=== PATIENT | female | born 1965 | race American Indian/Alaskan Native ===

== ENCOUNTER 2017-05-15 08:26 | Outpatient (CLI) | payer MEDICARE ==
[2017-05-15 11:00] LABS: Uric Acid 5.3 mg/dL (3.5-7.6)
== END 2017-05-15 08:27 | disposition home or self-care (01) ==
LOC: LABHHL 08:26
PROVIDERS: ATTEND Internal Medicine
DX: E11.9 Type 2 diabetes mellitus without complications (principal); I10 Essential (primary) hypertension; J44.9 Chronic obstructive pulmonary disease, unspecified; K21.9 Gastro-esophageal reflux disease without esophagitis; E78.2 Mixed hyperlipidemia; G89.4 Chronic pain syndrome; M81.0 Age-related osteoporosis without current pathological fracture; R32 Unspecified urinary incontinence; J45.909 Unspecified asthma, uncomplicated; Z79.899 Other long term (current) drug therapy; Z87.891 Personal history of nicotine dependence
CPT/HCPCS: 36415; 80061; 83036; 84550

== ENCOUNTER 2017-10-12 09:43 | Outpatient (CLI) | payer MEDICARE ==
--- NOTE | 2017-10-12 12:01 | Cat Scan Report ---
CT NECK WITH CONTRAST: HISTORY: Acute pharyngitis. TECHNIQUE: Helical CT following IV contrast. Sagittal and coronal reformatted images. FINDINGS: The parotid and submandibular glands are normal. The carotid sheaths are intact. There is no evidence of adenopathy within the neck. The thyroid gland is normal. The glottic structures are normal. The airway is patent. Strap musculature is unremarkable. Hyoid bone and thyroid cartilage are intact. No evidence for abscess. IMPRESSION: Unremarkable CT neck.
== END 2017-10-12 09:44 | disposition home or self-care (01) ==
LOC: CT 09:43
PROVIDERS: ATTEND Nurse Practitioner
DX: J02.9 Acute pharyngitis, unspecified (principal); R59.9 Enlarged lymph nodes, unspecified
CPT/HCPCS: 70491; Q9967

== ENCOUNTER 2019-01-10 12:09 | Emergency (ER) | payer MEDICARE ==
--- NOTE | 2019-01-10 12:19 | Emergency Department Report ---
Chief Complaint: Extremity Problem,Nontraumatic Stated Complaint: RT HIP/DISCHARGE PAIN Time Seen by Provider: 01/10/19 12:15 - HPI History of Present Illness: Pt c/o right hip pain that began a week ago. states the more she ambulates the worse the pain gets denies any injury or fall she states she did exert herself more over the last week Pt is also c/o vaginal discharge a week ago green colored discharge (+) sexually active no urinary sx, fever hx of gonorrhea in teenage years PSHx total hysterectomy MSE complete MSE screening note: Focused history and physical exam performed. Due to findings the following was ordered: UA, right hip xr ED Disposition for MSE Condition: Stable
--- NOTE | 2019-01-10 12:43 | XRay Report ---
RIGHT HIP, 2 views: History: Right rib pain. The bony architecture is intact without evidence of fracture or dislocation. No significant soft tissue abnormality is seen. IMPRESSION: Normal right hip.
[2019-01-10 13:54] LABS: Bilirubin,Urine NEG (Negative); Blood,Urine NEG (Negative); Color,Urine Straw (Yellow); Mucus,Urine FEW /HPF; Protein,Urine <15 mg/dL mg/dL (Negative); Urobilinogen,Urine < 2.0 mg/dL (<2.0); WBC,Urine < 1.0 /HPF (0.0-6.0)
[2019-01-10] MEDS ORDERED: IBUPROFEN PO ONE (13:57)
--- NOTE | 2019-01-10 13:57 | Emergency Department Report ---
ED Dysuria HPI - HPI Chief Complaint: Extremity Problem,Nontraumatic Stated Complaint: RT HIP/DISCHARGE PAIN Time Seen by Provider: 01/10/19 12:15 Duration: 3 Days Severity: Mild Symptoms: Dysuria: Yes, Frequency: No, Suprapubic Pain: No, Flank Pain: No, Fever: No, Hematuria: No, Abdominal Pain: No, Previous UTI's: No Other History: Patient is a 53-year-old -[place]ian female who comes to the ER today with 2 complaints. 1. She is having right hip pain to she is having vaginal discharge for a week. she denies fall. 2. She describes it as white and malodorous. Patient is not concerned for STDs AND SHE she is postmenopausal. PMH. htn. hpld. gerd. neuropathy. arthritis. allergies. asthma ED Review of Systems ROS: Stated complaint: RT HIP/DISCHARGE PAIN Other details as noted in HPI Comment: All other systems reviewed and negative Constitutional: denies: chills Eyes: denies: eye pain ENT: denies: ear pain Respiratory: denies: cough Cardiovascular: denies: palpitations Endocrine: denies: excessive sweating Gastrointestinal: denies: abdominal pain, nausea, vomiting Genitourinary: as per HPI, discharge. denies: urgency, dysuria, frequency, hematuria Musculoskeletal: as per HPI, arthralgia Skin: denies: rash Neurological: denies: headache Psychiatric: denies: anxiety Hematological/Lymphatic: denies: easy bleeding ED Past Medical Hx - Past Medical History Hx Hypertension: Yes Hx Diabetes: Yes Hx GERD: Yes Hx Liver Disease: No Hx Renal Disease: No Hx Arthritis: Yes Hx Seizures: No Hx Asthma: Yes (INHALER PRN) Hx HIV: No Additional medical history: glaucoma - Surgical History Past Surgical History?: Yes Additional Surgical History: hysterectomy,ganglion cyst,spinal stimulator. L4-5 fusion. bone graft. left shoulder rotator cuff surgery. left bicep surgery, right shoulder - Family History Family history: no significant - Social History Smoking Status: Never Smoker Substance Use Type: None - Medications Home Medications: Home Medications Medication Instructions Recorded Confirmed Last Taken Type ALBUTEROL NEB's [Proventil] 2.5 mg IH PRN PRN 04/03/16 10/07/18 03/09/18 History Bimatoprost [Lumigan 0.01%] 1 drop OP QPM 04/03/16 10/07/18 10/06/18 History Esomeprazole Magnesium [NexIUM] 40 mg PO QDAY 04/03/16 09/22/18 10/07/18 04:00 History Ezetimibe [Zetia] 10 mg PO QDAY 04/03/16 09/22/18 10/07/18 04:00 History Gabapentin [Neurontin] 900 mg PO DAILY 04/03/16 09/22/18 10/07/18 04:00 History Lisinopril [Zestril] 20 mg PO QDAY 04/03/16 09/22/18 10/07/18 04:00 History Metoprolol [Lopressor TAB] 50 mg PO DAILY 04/03/16 09/22/18 10/07/18 04:00 History cycloSPORINE [Restasis 0.05%] 2 drop OP BID 04/03/16 10/07/18 10/07/18 04:00 History hydroCHLOROthiazide [HCTZ] 25 mg PO QDAY 04/03/16 10/07/18 10/05/18 History Atorvastatin 40 mg PO DAILY 04/16/16 10/07/18 09/23/18 History Montelukast Sodium 1 tab PO QDAY 10/07/18 10/07/18 10/07/18 04:00 History RX: HYDROcodone/APAP 7.5-325 1 each PO Q6HR PRN #35 tablet 10/07/18 Unknown Rx [[place] 7.5-325 mg TAB] metroNIDAZOLE [Flagyl] 500 mg PO Q12HR #20 tab 01/10/19 Unknown Rx Dysuria Exam - Exam General: Vital signs noted. No distress. Alert and acting appropriately. Exam: Yes Moist Mucous Membranes, No CVA Tenderness, No Abdominal Tenderness, No Rigidity or Guarding Labs: Lab Results 01/10/19 Range/Units 12:54 Urine Bilirubin Neg (Negative) Urine RBC (Auto) 4.0 (0.0-6.0) /HPF U Epithel Cells (Auto) 3.0 (0-13.0) /HPF ED Course Vital Signs 01/10/19 12:16 Temperature 97.5 F L Pulse Rate 68 Respiratory 20 Rate Blood Pressure 178/89 O2 Sat by Pulse 100 Oximetry - Reevaluation(s) Reevaluation #1: 03/04/19 home meds lumigan nexium zetia gabapentin lisinopril metoprolol restasis hctz statin [place] ED Medical Decision Making - Radiology Data Radiology results: report reviewed, image reviewed - Medical Decision Making XRAY NEG FOR FRACTURE Labs 01/10/19 12:54 Urine Color Straw Urine Turbidity Clear Urine pH 5.0 Ur Specific [place] 1.006 Urine Protein <15 mg/dl Urine Glucose (UA) Neg Urine Ketones Neg Urine Blood Neg Urine Nitrite Neg Urine Bilirubin Neg Urine Urobilinogen < 2.0 Ur Leukocyte Esterase Lg Urine WBC (Auto) < 1.0 Urine RBC (Auto) 4.0 U Epithel Cells (Auto) 3.0 Urine Mucus Few Vital Signs 01/10/19 01/10/19 12:16 14:25 Temperature 97.5 F L Pulse Rate 68 70 Respiratory 20 16 Rate Blood Pressure 178/89 Blood Pressure 174/84 [Left] O2 Sat by Pulse 100 100 Oximetry dc home with flagyl for vaginitis instructed to use nsaids for pain in her hip pt is ambulatory and without point tenderness on her hip Critical care attestation.: If time is entered above; I have spent that time in minutes in the direct care of this critically ill patient, excluding procedure time. ED Disposition Clinical Impression: Arthritis, Vaginitis Disposition: DC-01 TO HOME OR SELFCARE Is pt being admited?: No Does the pt Need Aspirin: No Condition: Stable Additional Instructions: FOLLOW UP WITH PCP FOR HIP PAIN MED ORDERED TODAY ONCE YOU FINISH ANTIBIOTIC YOU SHOULD SEE PCP TO BE SURE THE INFECTION IS GONE EAT YOGURT EVERY DAY DIET AND ACTIVITY TOLERATED Prescriptions: metroNIDAZOLE [Flagyl] 500 mg PO Q12HR #20 tab Referrals: ODILIA DONG MD [Primary Care Provider] - 3-5 Days Time of Disposition: 13:57
[2019-01-10 14:27] VITALS: BP 174/84
== END 2019-01-10 14:25 | disposition home or self-care (01) ==
LOC: ED 12:09
DX: N76.0 Acute vaginitis (principal); M19.90 Unspecified osteoarthritis, unspecified site; I10 Essential (primary) hypertension; E11.9 Type 2 diabetes mellitus without complications; K21.9 Gastro-esophageal reflux disease without esophagitis; J45.909 Unspecified asthma, uncomplicated; Z90.710 Acquired absence of both cervix and uterus; Z88.7 Allergy status to serum and vaccine; Z88.8 Allergy status to other drugs, medicaments and biological substances
CPT/HCPCS: 81001; 99284

== ENCOUNTER 2019-03-07 09:46 | Outpatient (CLI) | payer MEDICARE ==
[2019-03-07 11:28] LABS: Chol/HDL Ratio 3.79 %
== END 2019-03-07 09:47 | disposition home or self-care (01) ==
LOC: LAB 09:46
PROVIDERS: ATTEND Internal Medicine
DX: E11.9 Type 2 diabetes mellitus without complications (principal); I10 Essential (primary) hypertension; E78.2 Mixed hyperlipidemia; E78.00 Pure hypercholesterolemia, unspecified; K21.9 Gastro-esophageal reflux disease without esophagitis
CPT/HCPCS: 36415; 80061; 83036

== ENCOUNTER 2019-06-17 08:00 | Outpatient (CLI) | payer MEDICARE ==
--- NOTE | 2019-06-17 09:33 | XRay Report ---
RIGHT HIP 2 VIEW(S) INDICATION / CLINICAL INFORMATION: M25.551 PAIN IN RIGHT HIP COMPARISON: 01/10/19 FINDINGS: BONES / JOINT(S): No acute fracture or subluxation. Mild right hip degenerative arthrosis with minima l joint space narrowing and small marginal osteophyte on the femoral head. SOFT TISSUES: No significant abnormality. ADDITIONAL FINDINGS: Lumbosacral posterior fusion-decompression is unchanged. Signer Name: Donna Chaudhari MD Signed: 06/17/2019 9:28 AM Workstation Name: [id number]
== END 2019-06-17 08:01 | disposition home or self-care (01) ==
LOC: XRAY 08:00
PROVIDERS: ATTEND Orthopaedic Surgery
DX: M16.11 Unilateral primary osteoarthritis, right hip (principal); E78.00 Pure hypercholesterolemia, unspecified; I10 Essential (primary) hypertension; J45.909 Unspecified asthma, uncomplicated; K21.9 Gastro-esophageal reflux disease without esophagitis; E11.9 Type 2 diabetes mellitus without complications

== ENCOUNTER 2019-06-17 10:14 | Emergency (ER) | payer MEDICARE ==
[2019-06-17 10:40] VITALS: BP 114/76
== END 2019-06-17 12:15 | disposition left against medical advice (07) ==
LOC: ED 10:14
DX: R10.9 Unspecified abdominal pain (principal); Z53.21 Procedure and treatment not carried out due to patient leaving prior to being seen by health care provider

== ENCOUNTER 2019-06-21 10:04 | Outpatient (CLI) | payer MEDICARE ==
[2019-06-21 10:44] LABS: Hematocrit 36.6 % (30.3-42.9); Hemoglobin 12.4 gm/dl (10.1-14.3); Mean Corpuscular HGB Conc 34 % (30-34); Mean Corpuscular Volume 89 fl (79-97); Platelet Count 263 K/mm3 (140-440); Red Blood Count 4.12 M/mm3 (3.65-5.03); Red Cell Distribution Width 14.5 % (13.2-15.2)
[2019-06-21 10:50] LABS: Bacteria,Urine 1+ /HPF (Negative); Bilirubin,Urine NEG (Negative); Blood,Urine SM (Negative); Color,Urine Yellow (Yellow); Mucus,Urine FEW /HPF; Protein,Urine <15 mg/dL mg/dL (Negative); Urobilinogen,Urine < 2.0 mg/dL (<2.0)
[2019-06-21 11:12] LABS: Creatinine,Urine 115.5 mg/dL (0.1-20.0)
[2019-06-21 11:16] LABS: Alanine Aminotransferase 10 units/L (7-56); Albumin 4.2 g/dL (3.9-5); BUN/Creatinine Ratio 13; Blood Urea Nitrogen 12 mg/dL (7-17); Calcium 9.6 mg/dL (8.4-10.2); Hemolysis Index 1; LDL Cholesterol,Direct 157 mg/dL (50-130)
[2019-06-21 11:17] LABS: Microalbumin/Creatinine Ratio 10.3 ug/mg
[2019-06-21 11:26] LABS: Chol/HDL Ratio 3.62 %; HDL Cholesterol 59 mg/dL (40-59)
[2019-06-25 18:14] LABS: Vitamin D, 25-OH, D2 <4 ng/mL
== END 2019-06-21 10:05 | disposition home or self-care (01) ==
LOC: LAB 10:04
PROVIDERS: ATTEND Internal Medicine
DX: E55.9 Vitamin D deficiency, unspecified (principal); E78.2 Mixed hyperlipidemia; E11.22 Type 2 diabetes mellitus with diabetic chronic kidney disease; N18.3 Chronic kidney disease, stage 3 (moderate); E78.00 Pure hypercholesterolemia, unspecified; J45.909 Unspecified asthma, uncomplicated; K21.9 Gastro-esophageal reflux disease without esophagitis; I12.9 Hypertensive chronic kidney disease with stage 1 through stage 4 chronic kidney disease, or unspecified chronic kidney disease; E66.9 Obesity, unspecified; R82.998 Other abnormal findings in urine; Z90.710 Acquired absence of both cervix and uterus
CPT/HCPCS: 36415; 80053; 80061; 81001; 82043; 82306; 82607; 83036; 84443; 85027; 87086

== ENCOUNTER 2020-02-02 10:30 | Outpatient (CLI) | payer MEDICARE ==
[2020-02-02 11:28] LABS: Chol/HDL Ratio 3.13 %
== END 2020-02-02 10:31 | disposition home or self-care (01) ==
LOC: LAB 10:30
PROVIDERS: ATTEND Internal Medicine
DX: E11.9 Type 2 diabetes mellitus without complications (principal); E78.2 Mixed hyperlipidemia
CPT/HCPCS: 36415; 80061; 83036

== ENCOUNTER 2020-06-28 10:55 | Outpatient (CLI) | payer MEDICARE ==
[2020-06-28 11:23] LABS: Basophils % (Auto) 0.7 % (0.0-1.8); Eosinophils # (Auto) 0.1 K/mm3 (0.0-0.4); Hematocrit 37.3 % (30.3-42.9); Hemoglobin 12.5 gm/dl (10.1-14.3); Lymphocytes # (Auto) 2.2 K/mm3 (1.2-5.4); Lymphocytes % (Auto) 40.9 % (13.4-35.0); Mean Corpuscular HGB Conc 34 % (30-34); Mean Corpuscular Volume 91 fl (79-97); Monocytes # (Auto) 0.3 K/mm3 (0.0-0.8); Monocytes % (Auto) 5.5 % (0.0-7.3); Platelet Count 216 K/mm3 (140-440); Red Cell Distribution Width 14.8 % (13.2-15.2)
[2020-06-28 12:04] LABS: Alanine Aminotransferase 34 units/L (7-56); Albumin 4.7 g/dL (3.9-5); BUN/Creatinine Ratio 19; Blood Urea Nitrogen 19 mg/dL (7-17); Calcium 9.5 mg/dL (8.4-10.2); Chol/HDL Ratio 3.14 %; HDL Cholesterol 63 mg/dL (40-59); Hemolysis Index 37; LDL Cholesterol,Direct 125 mg/dL (50-130)
== END 2020-06-28 10:56 | disposition home or self-care (01) ==
LOC: LAB 10:55
PROVIDERS: ATTEND Internal Medicine
DX: E78.2 Mixed hyperlipidemia (principal); E11.9 Type 2 diabetes mellitus without complications; E55.9 Vitamin D deficiency, unspecified; Z00.00 Encounter for general adult medical examination without abnormal findings; Z13.29 Encounter for screening for other suspected endocrine disorder
CPT/HCPCS: 36415; 80053; 80061; 82306; 82607; 83036; 84443; 85025

== ENCOUNTER 2021-07-16 09:31 | Outpatient (CLI) | payer MEDICARE ==
--- NOTE | 2021-07-16 10:11 | XRay Report ---
Right hand 3 views INDICATION: Right hand pain following fall IMPRESSION: No fractures or subluxation of the right hand is identified. There is some swelling ident ified at the level of the PIP joint of the fifth finger. Signer Name: Mike Moore MD Signed: 07/16/2021 10:06 AM Workstation Name: [id number]
== END 2021-07-16 09:32 | disposition home or self-care (01) ==
LOC: XRAY 09:31
PROVIDERS: ATTEND Internal Medicine
DX: M79.641 Pain in right hand (principal); M79.89 Other specified soft tissue disorders